=== PATIENT | male | born 1950 | race African-American/Black ===

== ENCOUNTER 2019-02-22 11:13 | Emergency (ER) | payer OTHER, MEDICAID ==
[~2019-02-22] VITALS: Ht 185.4 cm; Wt 72.6 kg
--- NOTE | 2019-02-22 11:25 | NUR ---
ED Nurse Note: Pt came from home c/o epigastic pain 11/07, states vomiting for x2 hrs. Pt on monitor, NAD, VSS, family at bedside, ERMD at bedside. Will continue to monitor patient.
[2019-02-22 11:30] VITALS: BP 149/73
--- NOTE | 2019-02-22 11:50 | Emergency Room Report ---
History of Present Illness General Chief Complaint: Abdominal Pain Source: Patient Present Illness HPI Disclaimer: Please note that this report is being documented using [employer] technology. This can lead to erroneous entry secondary to incorrect interpretation by the dictating instrument. HPI: 68-year-old male with history of colon cancer presents for evaluation of epigastric pain. Symptoms began last night. He notes sharp stabbing epigastric pain that radiates to the left side. No history of pancreatitis. He reports mild chest pain but no shortness of breath and no palpitations. One episode of emesis. Denies diarrhea. Denies dysuria or hematuria. No history of kidney stones. Reports minor left-sided flank pain. No exacerbating or relieving symptoms. Pain is currently 10/10. Reports nausea. PMH: Colon cancer status post chemotherapy and radiation PSH: Colon resection Allergies: Morphine Social Hx: Denies Allergies: Coded Allergies: LATEX (Verified Allergy, Unknown, 02/22/19) Nursing Documentation-PMH Past Medical History: No History, Except For Hx Cancer: Yes - colon Review of Systems All Other Systems: negative except mentioned in HPI Physical Exam Vital Signs Date Time Temp Pulse Resp B/P (MAP) Pulse Ox O2 Delivery O2 Flow Rate FiO2 02/22/19 11:19 97.2 61 22 156/76 (102) 100 Room Air General: Awake and alert, appears uncomfortable, writhing in bed HEENT: NC/AT. EOMI. Cardiovascular: RRR. S1 and S2 normal. No murmur appreciated Resp: Normal work of breathing. No cough, wheezing or crackles appreciated Abdomen: Abdomen is soft, nondistended. Tender in the right upper quadrant, epigastric and left upper quadrant left lower quadrant. Skin: Intact. No abrasions, laceration or rash over the exposed skin MSK: Normal tone and bulk. Moving all extremities. No obvious deformity. Neuro: Awake and alert. Mentating appropriately. Back/Spine: Left-sided flank tenderness Medical Decision Making Diagnostic Impression: Primary Impression: Kidney stone Additional Impression: Bladder mass ER Course 68-year-old male with a history of colon cancer status post resection presents for evaluation of epigastric pain beginning last night. He appears uncomfortable, writhing in pain in the bed. Arrives afebrile with otherwise stable vital signs. Differential includes was not limited to gastroenteritis, pancreatitis, cholecystitis, bowel obstruction, diverticulitis, nephrolithiasis , urinary tract infection just to name a few. Start broad metabolic and infectious work-up. Start IV fluids, antiemetics, pain medication and send the patient for CT scan of the abdomen. Laboratory Tests Test 02/22/19 11:35 White Blood Count 10.1 K/UL (4.8-10.8) Red Blood Count 5.45 M/UL (4.70-6.10) Hemoglobin 14.9 G/DL (14.2-18.0) Hematocrit 44.7 % (42.0-52.0) Mean Corpuscular Volume 82 FL (80-99) Mean Corpuscular Hemoglobin 27.2 PG (27.0-31.0) Mean Corpuscular Hemoglobin Concent 33.2 G/DL (32.0-36.0) Red Cell Distribution Width 11.7 % (11.6-14.8) Platelet Count 250 K/UL (150-450) Mean Platelet Volume 5.2 FL (6.5-10.1) L Neutrophils (%) (Auto) 75.3 % (45.0-75.0) H Lymphocytes (%) (Auto) 16.0 % (20.0-45.0) L Monocytes (%) (Auto) 7.7 % (1.0-10.0) Eosinophils (%) (Auto) 0.2 % (0.0-3.0) Basophils (%) (Auto) 0.8 % (0.0-2.0) Urine Color Pale yellow Urine Appearance Clear Urine pH 9 (4.5-8.0) Urine Specific [place] 1.015 (1.005-1.035) Urine Protein 1+ (NEGATIVE) H Urine Glucose (UA) Negative (NEGATIVE) Urine Ketones Negative (NEGATIVE) Urine Blood 1+ (NEGATIVE) H Urine Nitrite Negative (NEGATIVE) Urine Bilirubin Negative (NEGATIVE) Urine Urobilinogen Normal MG/DL (0.0-1.0) Urine Leukocyte Esterase Negative (NEGATIVE) Urine RBC 2-4 /HPF (0 - 0) H Urine WBC 0-2 /HPF (0 - 0) Urine Squamous Epithelial Cells None /LPF (NONE/OCC) Urine Bacteria None /HPF (NONE) Sodium Level 138 MMOL/L (136-145) Potassium Level 3.7 MMOL/L (3.5-5.1) Chloride Level 104 MMOL/L (98-107) Carbon Dioxide Level 26 MMOL/L (21-32) Anion Gap 9 mmol/L (5-15) Blood Urea Nitrogen 17 mg/dL (7-18) Creatinine 1.3 MG/DL (0.55-1.30) Estimate Glomerular Filtration Rate 54.6 mL/min (>60) Glucose Level 119 MG/DL (74-106) H Calcium Level 9.4 MG/DL (8.5-10.1) Total Bilirubin 1.0 MG/DL (0.2-1.0) Aspartate Amino Transferase (AST) 22 U/L (15-37) Alanine Aminotransferase (ALT) 18 U/L (12-78) Alkaline Phosphatase 52 U/L (46-116) Troponin I 0.000 ng/mL (0.000-0.056) Pro-B-Type Natriuretic Peptide 104 pg/mL (0-125) Total Protein 7.6 G/DL (6.4-8.2) Albumin 4.0 G/DL (3.4-5.0) Globulin 3.6 g/dL Albumin/Globulin Ratio 1.1 (1.0-2.7) Lipase 90 U/L (73-393) EKG Diagnostic Results EKG Time: 11:29 Rate: normal Rhythm: NSR ST Segments: no acute changes Other Impression Sinus rhythm, normal axis, normal intervals, no ST segment changes Rhythm Strip Diag. Results Rhythm Strip Time: 11:29 EP Interpretation: yes Rate: 60s Rhythm: NSR, no PVC's, no ectopy Reevaluation Time: 15:34 Last Vital Signs Date Time Temp Pulse Resp B/P (MAP) Pulse Ox O2 Delivery O2 Flow Rate FiO2 02/22/19 11:19 97.2 61 22 156/76 (102) 100 Room Air Reevaluation Impression CT shows a 2 to 3 mm stone in the left distal ureter with mild hydronephrosis. No evidence of urinary tract infection on urinalysis. Labs are otherwise within normal limits showing normal renal function. The patient feels better after receiving IV fluids and pain medication. He will be given a dose of Toradol prior to discharge and discharged with Flomax, Zofran, ibuprofen and breakthrough pain medication to use as needed. He will follow-up with his PMD to also discuss a possible bladder wall mass which should be evaluated by urology. I discussed these findings with patient and his family. CT report was included in his discharge paperwork. Appropriate for outpatient follow-up. Discussed reasons to return to the emergency department. He understands and agrees with the treatment plan. Disposition: HOME, SELF-CARE Condition: Improved Scripts Tamsulosin HCl (Flomax) 0.4 Mg Cap.er.24h 0.4 MG ORAL DAILY for 5 Days, #5 CAP Prov: Keenan Ramirez MD 02/22/19 Ondansetron Odt* (ZOFRAN ODT*) 4 Mg Tab.rapdis 4 MG BC EVERY 6 HOURS PRN for Nausea & Vomiting, #10 TAB 0 Refills Prov: Keenan Ramirez MD 02/22/19 Ibuprofen* (MOTRIN*) 600 Mg Tablet 600 MG ORAL Q8H PRN for For Pain, #30 TAB 0 Refills Prov: Keenan Ramirez MD 02/22/19 Hydrocodone Bit/Acetaminophen 5-325* (NORCO 5-325*) 1 Each Tablet 1 TAB ORAL Q6H PRN for For Pain, #10 TAB 0 Refills Prov: Keenan Ramirez MD 02/22/19 Keenan Ramirez MD Feb 22, 2019 11:50
--- NOTE | 2019-02-22 11:53 | NUR ---
ED Nurse Note: IV LINE ESTABLISHED ON L AC WITH 20G. BLOOD DRAWN AND SENT TO LAB. LINE PATENT AND INTACT.
[2019-02-22] MEDS ORDERED: Hydromorphone 0.5mg/0.5ml inj IVP ONE ×2 (12:00→13:15)
[2019-02-22 12:17] LABS: BASOPHILS % (AUTO) 0.8 % (0.0-2.0); EOSINOPHILS % (AUTO) 0.2 % (0.0-3.0); HEMATOCRIT 44.7 % (42.0-52.0); HEMOGLOBIN 14.9 G/DL (14.2-18.0); MEAN CORPUSCULAR VOLUME 82 FL (80-99); MONOCYTES % (AUTO) 7.7 % (1.0-10.0); NEUTROPHILS % (AUTO) 75.3 % (45.0-75.0); PLATELET COUNT 250 K/UL (150-450); RED BLOOD COUNT 5.45 M/UL (4.70-6.10); RED CELL DISTRIBUTION WIDTH 11.7 % (11.6-14.8); WHITE BLOOD COUNT 10.1 K/UL (4.8-10.8)
[2019-02-22 12:18] LABS: APPEARANCE,URINE CLEAR; BILIRUBIN, URINE NEGATIVE (NEGATIVE); COLOR,URINE PALE YELLOW; GLUCOSE, URINE (UA) NEGATIVE (NEGATIVE); KETONES,URINE NEGATIVE (NEGATIVE); LEUKOCYTE ESTERASE ,URINE NEGATIVE (NEGATIVE); NITRITE,URINE NEGATIVE (NEGATIVE); PH,URINE 9 (4.5-8.0); PROTEIN,URINE 1+ (NEGATIVE); UROBILINOGEN,URINE NORMAL MG/DL (0.0-1.0)
[2019-02-22 12:30] VITALS: BP 152/73
[2019-02-22 12:36] LABS: ANION GAP 9 mmol/L (5-15); BLOOD UREA NITROGEN 17 mg/dL (7-18); CALCIUM 9.4 MG/DL (8.5-10.1); CARBON DIOXIDE 26 MMOL/L (21-32); CHLORIDE 104 MMOL/L (98-107); CREATININE 1.3 MG/DL (0.55-1.30); POTASSIUM 3.7 MMOL/L (3.5-5.1); SODIUM 138 MMOL/L (136-145)
[2019-02-22 12:46] LABS: ALANINE AMINOTRANSFERASE 18 U/L (12-78); ALBUMIN/GLOBULIN RATIO 1.1 (1.0-2.7); ALKALINE PHOSPHATASE 52 U/L (46-116); ASPARTATE AMINO TRANSFERASE 22 U/L (15-37)
[2019-02-22] MEDS ORDERED: Omnipaque-300 100ml vial INJ PRN (14:15)
--- NOTE | 2019-02-22 14:15 | NUR ---
ED Nurse Note: Pt went for CT via [facility] accompanied by optometric tech.
[2019-02-22 14:30] VITALS: BP 137/69
--- NOTE | 2019-02-22 14:32 | NUR ---
ED Nurse Note: Pt back from CT via jul[facility] accompanied by Jose M felder. Pt back on monitor, VSS, NAD. Family at bedside. Will continue to monitor patient.
--- NOTE | 2019-02-22 15:16 | Diagnostic Imaging Report ---
Indication: Abdominal pain Technique: CT of the abdomen and pelvis utilizing automated exposure control with intravenous contrast. Venous scanning performed. Axial, sagittal and coronal reformats presented. CT dose: Total DLP 785.8 mGycm; CTDI vol routine mGy Comparison: None Findings: Mild dependent atelectatic changes noted in the posterior lower lobes bilaterally. Partially imaged heart appears within normal limits for size. Aortic valvular calcifications are suggested the partially visualized. No pericardial effusion There is within the normal limits for size. Hepatic contour is smooth. No definite focal hepatic mass lesion identified on this single phase exam. Hepatic veins and portal veins appear patent. There are no CT evident gallstones or pericholecystic inflammatory changes. No biliary ductal dilatation. Spleen, adrenal glands and pancreas unremarkable in appearance. There is a subtle asymmetry in renal enhancement with a somewhat striated. In the left kidney. There is mild left perinephric stranding. There is also enhancement of the urothelium on the left. There is mild asymmetric prominence of the left collecting system/very minimal hydronephrosis. There is a 2 to 3 mm stone in the distal left ureter (series 2 image #[id number]). This stone is approximate 3 cm from the ureterovesicular junction. The wall of the bladder is thickened. There is a low-attenuation mass in the left posterior aspect of the bladder that measures 1.3 cm which may represent a ureterocele. Recommend follow-up cystoscopy however is additional bladder tumors, benign or malignant, not excluded. The prostate is mildly enlarged and heterogeneous and exerts mass effect on the posterior aspect of the bladder. There is no free intraperitoneal air or fluid. There is no evidence of small bowel obstruction. There is evidence of prior surgery with partial colonic resection. The abdominal aorta is normal in caliber with mild scattered atherosclerotic calcifications. There are degenerative changes in the spine most pronounced at L5-S1. No acute fractures identified. IMPRESSION: * 2 to 3 mm stone in the left distal ureter (2 to 3 cm from the left ureterovesicular junction) resulting in very mild left-sided hydronephrosis and mild left-sided perinephric stranding. Subtle asymmetric enhancement of the left kidney and left-sided urothelial enhancement is noted. Findings are concerning for superimposed urinary tract infection/pyelonephritis. Correlation with urinalysis recommended. * Bladder wall thickening may potentially be related to underdistention. There is a 1.3 cm low-attenuation rounded lesion adjacent to the left ureterovesicular junction which may represent a ureterocele. Additional bladder tumors (benign or malignant) not excluded. Consider direct visualization with cystoscopy. * Mild prostatomegaly. * Evidence of prior abdominal surgery with partial colonic resection. No evidence of bowel obstruction. The CT scanner at [facility] is accredited by the [employer] and the scans are performed using protocols designed to limit radiation exposure to as low as reasonably achievable to attain images of sufficient resolution adequate for diagnostic evaluation.
[2019-02-22] MEDS ORDERED: FLOMAX0.4 MG ORAL (15:32)
[2019-02-22] MEDS ORDERED: NORCO 5-325 TA1 EACH ORAL (15:32)
[2019-02-22] MEDS ORDERED: IBUPROFEN600 MG ORAL (15:32)
[2019-02-22] MEDS ORDERED: ONDANSETRON ODT4 MG BC (15:32)
[2019-02-22 15:40] VITALS: BP 132/66
--- NOTE | 2019-02-22 15:40 | NUR ---
ER DISCHARGE NOTE: Patient is cleared to be discharged per ERMD, pt is aox4, on room air, with stable vital signs. pt was given dc and prescription instructions, pt was able to verbalize understanding, pt id band and iv site removed without complications. pt is able to ambulate with steady gait. pt took all belongings accompanied by family
[2019-02-22] MEDS ORDERED: Ketorolac 30mg Inj IV ONE (15:45)
== END 2019-02-22 15:40 | disposition home or self-care (01) ==
LOC: EMR 12:10
DX: N20.0 Calculus of kidney (principal); N32.9 Bladder disorder, unspecified; Z85.038 Personal history of other malignant neoplasm of large intestine; Z88.5 Allergy status to narcotic agent; Z98.890 Other specified postprocedural states; Z91.040 Latex allergy status
CPT/HCPCS: 36415; 74177; 80053; 81003; 83690; 83880; 84484; 85025; 93005; 96361; 96374; 96375; 96376; 99284; J1170; J1885; J2405; J7030; Q9967